=== PATIENT | female | born 1950 | race Two or more races ===

== ENCOUNTER 2024-06-08 09:57 | Emergency (ER) | payer MEDICARE, SELFPAY ==
[2024-06-08 10:23] VITALS: BP 184/71; PULSE 91; RESP 18; TEMP 37.3; O2SAT 97; BMI 26.2
--- NOTE | 2024-06-08 10:25 | XR_ITS ---
Examination: PA lateral chest 2 views TECHNIQUE: Upright PA lateral chest 2 views Exam date and time: June 08, 2024 1037 hours INDICATIONS: Coughing wheezing beginning one week ago FINDINGS: Normal heart size No lobar pneumonia or pulmonary edema Pulmonary nodule right midlung measures 7 mm compared to 10/29/2022 Adequate bone mineralization IMPRESSION: No pneumonia identified Recommend elective CT chest without contrast follow-up to exclude enlarging pulmonary nodule right midlung
--- NOTE | 2024-06-08 11:56 | EDNOTE_ITS ---
Upper Respiratory Inf. RME/HPI General Chief Complaint: Shortness of Breath/Dyspnea Stated Complaint: SOB, runny nose, cough Time Seen by Provider: 06/08/24 10:15 Arrival date/time: 06/08/24 09:57 74-year-old female presents to emergency department today with complaints of cough, congestion, runny nose and increased mucus production patient report symptoms ongoing for last couple of weeks patient reports taking course of antibiotics Limitations: no limitations Related Data Home Medications ?Medication ?Instructions ?Recorded ?Confirmed clonazepam 0.5 mg tablet 0.5 mg PO HS ##30 05/18/17 04/14/18 hydrochlorothiazide 25 mg tablet 25 mg PO QDAY ##30 05/18/17 04/14/18 lisinopril 40 mg tablet 40 mg PO QDAY ##30 05/18/17 04/14/18 gabapentin 300 mg capsule 300 mg PO BID #0 caps 05/19/17 04/14/18 metformin 1,000 mg tablet 1,000 mg PO BIDWM #0 tabs 05/19/17 04/14/18 (Glucophage) metoprolol tartrate 50 mg tablet 50 mg PO BID #0 tabs 05/19/17 04/14/18 pioglitazone 30 mg tablet (Actos) 15 mg PO QDAY #0 tabs 05/19/17 04/14/18 Previous Rx's ?Medication ?Instructions ?Recorded ibuprofen 600 mg tablet 600 mg PO Q6HR PRN PAIN #25 tabs 08/22/16 cyclobenzaprine 10 mg tablet 10 mg PO Q8H PRN muscle spasm #30 01/18/18 tabs tramadol 100 mg capsule 100 mg PO QDAY #30 caps 01/18/18 24h,extended release(25-75) albuterol sulfate 90 mcg/actuation 2 puff inhalation Q6H PRN 06/08/24 aerosol inhaler (Ventolin HFA) shortness of breath or wheezing #8.5 grams benzonatate 100 mg capsule 100 mg PO TID #14 caps 06/08/24 Allergies Allergy/AdvReac Type Severity Reaction Status Date / Time bee venom protein (honey bee) Allergy Intermediate SWELLS UP Verified 06/08/24 10:06 Review of Systems Review of Systems Systems Reviewed: All systems reviewed, normal except as documented Constitutional Constitutional: Reports system reviewed and no additional complaints, except as documented, Denies fever(s) and Denies headache(s) Eyes Eyes: Reports system reviewed and no additional complaints, except as documented and Denies blurry vision ENT Ears, Nose, Mouth, and Throat: Reports system reviewed and no additional complaints, except as documented, Reports facial pain, Denies headache(s), Reports nasal congestion, Reports nasal discharge, Reports sinus pain and Reports sinus pressure Cardiovascular Cardiovascular: Reports system reviewed and no additional complaints, except as documented, Denies chest pain and Denies dyspnea Respiratory Respiratory: Reports system reviewed and no additional complaints, except as documented, Reports chest congestion, Reports cough and Denies dyspnea Gastrointestinal Gastrointestinal: Reports system reviewed and no additional complaints, except as documented and Denies abdominal pain Integumentary/Breasts Skin/Breast: Reports system reviewed and no additional complaints, except as documented and Denies rash Neurologic Neurologic: Reports system reviewed and no additional complaints, except as documented, Reports as per HPI and Denies headache(s) Past Medical History Past Medical History CARDIAC: Positive Hypercholesterolemia and Hypertension; Negative Congestive Heart Failure RESPIRATORY: Negative Chronic Obstructive Pulmonary Disease (COPD) GENITOURINARY: Negative Renal Disease ENDOCRINE: Negative Diabetes Mellitus Type 1 or Diabetes Mellitus Type 2 Social History SMOKING STATUS: Never smoker ED Exam General Limitations: Present no limitations General appearance: Present alert and in no apparent distress Head Head exam: Present atraumatic Eye Eye exam: Present normal appearance, PERRL and EOMI; Absent conjunctival injection ENT ENT exam: Present normal exam, normal oropharynx and mucous membranes moist Neck Neck exam: Present normal inspection, full ROM and trachea midline Chest Chest inspection: Present normal inspection and symmetric chest wall rise Respiratory Respiratory exam: Present normal lung sounds bilaterally; Absent respiratory distress, wheezes, stridor or accessory muscle use Cardiovascular Cardiovascular exam: Present regular rate, normal rhythm and normal heart sounds; Absent bradycardia, tachycardia or irregular rhythm Abdominal Exam Abdominal exam: Present soft and normal bowel sounds; Absent distention, tenderness, guarding, rebound or rigidity Extremities Exam Extremities exam: Present normal inspection and full ROM Back Exam Back exam: Present normal inspection and full ROM Neurological Exam Neurological exam: Present alert, oriented X3 and CN II-XII intact Psychiatric Psychiatric exam: Present normal affect and normal mood Skin Skin exam: Present warm, dry, intact and normal color Course Quality Measures none Orders Category Date Time Status Bedside COVID-19 Antigen Test NOW Care 11/27/24 10:25 Completed Bedside Influenza A&B Antigen Test NOW Care 06/08/24 10:25 Completed XR chest 2V Stat Exams 06/08/24 10:25 Completed Vital Signs Vital signs: Vital Signs Temperature 99.1 F 06/08/24 10:23 Pulse Rate 91 06/08/24 10:23 Respiratory Rate 18 06/08/24 10:23 Blood Pressure 184/71 H 06/08/24 10:23 Pulse Oximetry (%) 97 06/08/24 10:23 Oxygen Delivery Method Room Air 06/08/24 10:23 O2 saturation 97% room air within normal limits Upper Respiratory Infection MDM Narrative MDM Narrative:: 74-year-old female presents to emergency department today with complaints of cough, congestion, runny nose and increased mucus production patient report symptoms ongoing for last couple of weeks patient reports taking course of antibiotics On exam patient well-appearing patient does not appear ill or toxic patient has no tachypnea no dyspnea no cords were breathing Patient hemodynamically stable Symptoms highly consistent with viral illness Flu COVID and chest x-ray obtained flu and COVID are both negative Chest x-ray reviewed by me and I gave the patient a copy of her x-ray report in order to bring to her primary care doctor to request outpatient CT scan Patient discharged home in no distress to follow-up with primary care doctor in the next 24 to 48 hours and for any worsening symptoms to return to the ER immediately Patient data External records reviewed:: [facility] previous records Clinical information provided by:: patient Social determinants that could affect healthcare access:: none Patient has the following chronic illnesses:: See history How is presenting disease/condition affected by chronic disease/condition?: uneffected by Evaluation data The following diagnostics were reviewed and interpreted by me:: lab results and radiology exam(s) Lab and/or radiology exams considered but not ordered:: Labs and radiology obtained Interpretation Summary: Reviewed by me Medications / Prescriptions Medications or Prescriptions considered but not ordered:: Given Medication administrations:: Given Consultations Consultation(s) initiated? (list below): No Diagnosis Upper Respiratory Differential Diagnosis: upper respiratory infection, sinusitis and bronchitis Most likely diagnosis given after review of the tests above:: URI Admission Indicated Admission indicated?: not indicated Admission Request Was there a request for admission?: No Disposition Plan Disposition Plan: Discharge Discharge Attestation Discharge Attestation: The patient and all family members were given an opportunity to ask questions and understood the discharge instructions. Discharge instructions specifically effects, indications for sooner follow up or return to the emergency department, and the expected course of current diagnosis. Patient condition: Stable Discharge Plan Plan Patient Disposition: HOME (Self Care) Disposition Comment: Stable Prescriptions/Referrals Prescriptions/Med Rec: New benzonatate 100 mg capsule 100 mg PO TID Qty: 14 0RF albuterol sulfate [Ventolin HFA] 90 mcg/actuation HFA aerosol inhaler 2 puff inhalation Q6H PRN (Reason: shortness of breath or wheezing) Qty: 8.5 0RF No Action ibuprofen 600 MG tablet 600 mg PO Q6HR PRN (Reason: PAIN) Qty: 25 0RF clonazepam 0.5 MG tablet 0.5 mg PO HS Qty: 30 hydrochlorothiazide 25 MG tablet 25 mg PO QDAY Qty: 30 lisinopril 40 MG tablet 40 mg PO QDAY Qty: 30 metformin [Glucophage] 1,000 MG tablet 1,000 mg PO BIDWM Qty: 0 metoprolol tartrate 50 MG tablet 50 mg PO BID Qty: 0 gabapentin 300 MG capsule 300 mg PO BID Qty: 0 pioglitazone [Actos] 15 MG tablet 15 mg PO QDAY Qty: 0 cyclobenzaprine 10 mg tablet 10 mg PO Q8H PRN (Reason: muscle spasm) Qty: 30 0RF tramadol 100 mg capsule,ER biphase 24 hr 25-75 100 mg PO QDAY Qty: 30 0RF Referrals: No Primary/Family,Physician [Primary Care Provider] - In 1 week Problem List Clinical Impression: URI (upper respiratory infection) Patient/Caregiver Discharge Instructions Education Materials: ED URI, Viral, No Abx (Adult) Additional Instructions: Please follow up with your primary care doctor in the next 24-48hrs for any worsening symptoms return here immediately Please bring copy of your x-ray report your primary care doctor request outpatient CT scan of your chest Print Language: Arabic Stand Alone Forms: Julieta Award Info., Patient Portal Info Letter Attestation Attestation The patient was seen by the midlevel practitioner. I, the co-signing physician, was present during the entire ER visit. While I did not physically examine the patient, I was available for consultation as needed.
== END 2024-06-08 12:37 | disposition home or self-care (01) ==
PROVIDERS: Emergency Provider Emergency Medicine
DX: J06.9 Acute upper respiratory infection, unspecified (principal)
CPT/HCPCS: 71046; 87400; 87811; 99283